=== PATIENT | male | born 1965 | race Caucasian/White ===

== ENCOUNTER 2023-09-07 09:37 | Inpatient (IN) | payer BC ==
[~2023-09-07] VITALS: Ht 193 cm; Wt 143.6 kg
[~2023-09-07 09:37] MED LIST: LISI-710
[2023-09-07 11:27] LABS: Basophils # (auto) 0.1 10 ^3/uL (0-0.2); Basophils % (auto) 0.7 % (0.0-2.0); Eosinophils # (auto) 0 10 ^3/uL (0-0.8); Hematocrit 46.2 % (41.0-53.0); Lymphocytes # (auto) 1.7 10 ^3/uL (0.4-5.4); Lymphocytes % (auto) 11.7 % (10.0-50.0); Mean Corpuscular Hemoglobin 30.5 pg (28.0-32.0); Mean Corpuscular Hgb Conc. 34.6 g/dL (32.0-36.0); Mean Corpuscular Volume 88.1 fL (80.0-100.0); Monocytes # (auto) 0.8 10 ^3/uL (0-1.3); Monocytes % (auto) 5.7 % (0.0-12.0); Neutrophils # (auto) 11.7 10 ^3/uL (1.6-8.6); Neutrophils % (auto) 81.9 % (37.0-80.0); Nucleated Red Blood Cells % 0.1 %; Red Blood Cells 5.24 10^6/uL (4.5-5.90); Red Cell Distribution Width 13.2 % (11.8-14.3); White Blood Cell 14.3 10^3/uL (4.4-10.8)
[2023-09-07 11:46] LABS: Chloride 101 mmol/L (98-107); Potassium 3.5 mmol/L (3.5-5.1); Sodium 138 mmol/L (136-145)
[2023-09-07 11:47] LABS: Anion Gap 11 (5-15); Carbon Dioxide 26 mmol/L (20-30)
[2023-09-07 11:52] LABS: BUN/Creatinine Ratio 13.9 (10.0-20.0); Blood Urea Nitrogen 11 mg/dL (9-23); Glucose 124 mg/dL (74-106)
[2023-09-07] MEDS: SODIUM CHLORIDE 0.9% 1,000 ML IV SCH (14:00)
[2023-09-07] MEDS ORDERED: MORPHINE SULFATE INJ 2 MG/ml SYRG IV PRN (14:00)
[2023-09-07] MEDS ORDERED: NITROGLYCERIN 0.4 MG SL TAB SL PRN (14:00)
[2023-09-07] MEDS ORDERED: ACETAMINOPHEN 325 MG TAB PO PRN (14:00)
[2023-09-07] MEDS: SODIUM CHLORIDE 0.9% 1,000 ML IV ONE (14:40)
[2023-09-07] MEDS: PANTOPRAZOLE 40 MG/10 ML VIAL INJ IV ONE (15:00)
[2023-09-07] MEDS: ONDANSETRON HCL 4 MG/2 ML VIAL IV PRN (15:01)
[2023-09-07] MEDS: cefTRIAXone 1GM/50ML D5W 50 ML IV ONE (15:03)
[2023-09-07 15:54] LABS: Triglycerides 188 mg/dL (< 150)
[2023-09-07 15:55] LABS: LDL Cholesterol 144 mg/dL (< 100)
[2023-09-07 15:56] LABS: Cholesterol 221 mg/dL (< 200); HDL Cholesterol 51 mg/dL (40-59)
[2023-09-07] MEDS: LISINOPRIL 5 MG TAB PO ONE (16:09)
[2023-09-07] MEDS: MECLIZINE HCL 25 MG TAB PO ONE (16:09)
[2023-09-07] MEDS ORDERED: LORazepam 2MG/ML-1ML VIAL IV PRN (19:15)
[2023-09-07] MEDS: hydrALAZINE HCL 20 MG/ML VL IV PRN (21:39)
[2023-09-07 23:42] VITALS: PULSE 75; RESP 17; O2SAT 97
[2023-09-07] MEDS: MECLIZINE HCL 25 MG TAB PO PRN (23:52)
[2023-09-08] VITALS (7 sets, daily range): BP systolic 148–187; BP diastolic 78–97; PULSE 72–87; RESP 17–20; TEMP 97.9–98.7; O2SAT 94–96
[2023-09-08] MEDS ORDERED: OLME1TAB11 PO (00:28)
[2023-09-08] MEDS ORDERED: NEBI10TA13 PO (00:28)
[2023-09-08] MEDS ORDERED: ROSU5TAB24 PO (00:28)
[2023-09-08] MEDS ORDERED: CELE1CAP29 PO (00:28)
[2023-09-08 07:06] LABS: Basophils # (auto) 0.1 10 ^3/uL (0-0.2); Basophils % (auto) 0.7 % (0.0-2.0); Eosinophils # (auto) 0.1 10 ^3/uL (0-0.8); Eosinophils % (auto) 0.5 % (0.0-7.0); Hematocrit 45.2 % (41.0-53.0); Hemoglobin 15.4 g/dL (13.5-17.5); Lymphocytes # (auto) 2.8 10 ^3/uL (0.4-5.4); Lymphocytes % (auto) 20.1 % (10.0-50.0); Mean Corpuscular Hemoglobin 30.3 pg (28.0-32.0); Mean Corpuscular Volume 89.1 fL (80.0-100.0); Monocytes # (auto) 1.3 10 ^3/uL (0-1.3); Monocytes % (auto) 9.2 % (0.0-12.0); Neutrophils # (auto) 9.6 10 ^3/uL (1.6-8.6); Neutrophils % (auto) 69.5 % (37.0-80.0); Nucleated Red Blood Cells % 0.2 %; Red Blood Cells 5.07 10^6/uL (4.5-5.90); Red Cell Distribution Width 13.5 % (11.8-14.3); White Blood Cell 13.8 10^3/uL (4.4-10.8)
[2023-09-08 07:30] LABS: Alanine Aminotransferase 39 U/L (7-40); Albumin 4.4 g/dL (3.2-4.8); Alkaline Phosphatase 42 U/L (46-116); Anion Gap 12 (5-15); Aspartate Aminotransferase 43 U/L (13-40); BUN/Creatinine Ratio 12.3 (10.0-20.0); Blood Urea Nitrogen 10 mg/dL (9-23); Calcium 9.7 mg/dL (8.5-10.1); Carbon Dioxide 24 mmol/L (20-30); Chloride 103 mmol/L (98-107); Glucose 98 mg/dL (74-106); Potassium 3.7 mmol/L (3.5-5.1); Sodium 139 mmol/L (136-145)
[2023-09-08 07:31] LABS: Bilirubin, Total 0.8 mg/dL (0.2-1.0); Total Protein 6.7 g/dL (5.7-8.2)
[2023-09-08] MEDS: PANTOPRAZOLE 40 MG/10 ML VIAL INJ IV SCH (08:53)
[2023-09-08] MEDS: cefTRIAXone 1GM/50ML D5W 50 ML IV SCH (08:53)
[2023-09-08] MEDS: LISINOPRIL 5 MG TAB PO SCH (08:54)
[2023-09-08] MEDS: ENOXAPARIN SOD 40 MG/0.4 ML SYRINGE SC SCH (08:55)
[2023-09-08 09:17] LABS: Urine Bacteria None Seen /hpf (None Seen)
[2023-09-08 09:26] LABS: Urine Blood Negative /uL (Negative); Urine Clarity Clear (Clear); Urine Color Light-Yellow (Yellow); Urine Mucus FEW (None Seen); Urine Protein, UAD Negative (Negative); Urine Specific Gravity 1.019 (1.001-1.035); Urine Urobilinogen Normal (Negative); Urine WBC 1 /hpf (0 - 3); Urine pH 6.5 (5.0-9.0)
[2023-09-08 09:36] LABS: Amphetamine Screen, Urine Neg (NEGATIVE); Barbiturate Scree,Urine Neg (NEGATIVE); Benzodiazephine Screen, Urine Neg (NEGATIVE); Cannabinoid Screen, Urine Neg (NEGATIVE); Cocaine Screen, Urine Neg (NEGATIVE); Opiate Scree,Urine Neg (NEGATIVE); Phencyclidine Screen, Urine Neg (NEGATIVE)
[2023-09-08] MEDS: ATORVASTATIN 20 MG TAB PO SCH (21:36)
[2023-09-09 02:05] VITALS: BP 152/80
[2023-09-09 04:39] VITALS: BP 154/80; PULSE 72; RESP 18; TEMP 98.3; O2SAT 96
[2023-09-09 08:00] VITALS: PULSE 74
[2023-09-09 08:20] VITALS: PULSE 82; RESP 17; O2SAT 98
[2023-09-09 09:00] VITALS: BP_SYST 0; BP_SYST 167; BP_DIAS 85; PULSE 82; RESP 17; TEMP 98.1; O2SAT 98
[2023-09-09] MEDS ORDERED: MECL-90 PO (12:16)
== END 2023-09-09 14:30 | disposition home or self-care (01) | DRG 69 ==
LOC: ER 09:37 → TELE 13:56 → TELE-WESTW 23:38
PROVIDERS: ADMIT Nurse Practitioner Family; ATTEND Nurse Practitioner Family
DX: G45.9 Transient cerebral ischemic attack, unspecified (principal); I10 Essential (primary) hypertension; E66.01 Morbid (severe) obesity due to excess calories; D72.829 Elevated white blood cell count, unspecified; G90.8 Other disorders of autonomic nervous system; E78.5 Hyperlipidemia, unspecified; F17.200 Nicotine dependence, unspecified, uncomplicated; Z68.38 Body mass index [BMI] 38.0-38.9, adult
CPT/HCPCS: 36415; 70450; 70551; 80048; 80053; 80061; 80307; 81001; 84443; 84484; 85025; 87040; 93306; 93886; C9113; G0378; J2405